=== PATIENT | male | born 1985 | race Caucasian/White ===

== ENCOUNTER 2020-03-04 10:27 | Inpatient (IN) | payer SELFPAY ==
[2020-03-04] MEDS ORDERED: NORMAL SALINE 1000 ML 1,000 ML IV ONE ×2 (11:55→17:20)
[2020-03-04] MEDS ORDERED: MORPHINE SULFATE 10 MG/ML INJ IV ONE ×2 (11:56→13:45)
[2020-03-04] MEDS ORDERED: ONDANSETRON HCL INJ/PF 4 MG/2 ML SDV IV ONE (11:56)
--- NOTE | 2020-03-04 11:57 | ER Document Report ---
ED GI/ - General Chief Complaint: Nausea/Vomiting/Diarrhea Stated Complaint: NAUSEA,VOMITING,DIARRHEA Time Seen by Provider: 03/04/20 11:46 Notes: CHIEF COMPLAINT: Right upper quadrant pain with vomiting HPI: 34-year-old male with history of hypertension presenting with right upper quadrant discomfort which radiates into the right back with vomiting since last night. Patient states he has had intermittent episodes of pain in the right b ack with some right upper quadrant pain over the last few years has never had it evaluated. Has not had a fever. Denies right lower quadrant pain. Has not specifically associated the discomfort with eating or drinking ROS: See HPI - all other systems were reviewed and are otherwise negative Constitutional: no fever Eyes: no drainage, no blurred vision ENT: no runny nose, no sore throat Cardiovascular: no chest pain Resp: no SOB, no cough GI: + vomiting, no diarrhea, + abdominal pain : no dysuria Integumentary: no rash Allergy: no hives Musculoskeletal: no extremity pain or swelling Neurological: no numbness/tingling, no weakness MEDICATIONS: I agree with the patient medications as charted by the RN. ALLERGIES: I agree with the allergies as charted by the RN. PAST MEDICAL HISTORY/PAST SURGICAL HISTORY: Reviewed and agree as charted by RN. SOCIAL HISTORY: Reviewed and agree as charted by RN. FAMILY HISTORY: No significant familial comorbid conditions directly related to patient complaint EXAM: Reviewed vital signs as charted by RN. CONSTITUTIONAL: Alert and oriented and responds appropriately to questions. Well-appearing; well-nourished HEAD: Normocephalic; atraumatic EYES: PERRL; Conjunctivae clear, sclerae non-icteric ENT: normal nose; no rhinorrhea; moist mucous membranes; pharynx without lesions noted, no uvula edema or deviation, no tonsillar hypertrophy, phonation normal NECK: Supple without meningismus; non-tender; no cervical lymphadenopathy, no masses CARD: RRR; no murmurs, no clicks, no rubs, no gallops; symmetric distal pulses RESP: Normal chest excursion without splinting or tachypnea; breath sounds clear and equal bilaterally; no wheezes, no rhonchi, no rales, pulse oximetry 98% on room air not hypoxic ABD/GI: Normal bowel sounds; non-distended; soft, moderate tenderness in the right upper quadrant on palpation, no rebound, no guarding; no palpable organomegaly or masses. BACK: The back appears normal and is non-tender to palpation, there is no CVA tenderness EXT: Normal ROM in all joints; non-tender to palpation; no cyanosis, no effu sions, no edema SKIN: Normal color for age and race; warm; dry; good turgor; no acute lesions noted NEURO: Moves all extremities equally; Motor and sensory function intact PSYCH: The patient's mood and manner are appropriate. Grooming and personal hygiene are appropriate. MDM: 34-year-old male with right upper quadrant pain intermittent for several years persistent since last night with multiple episodes of nausea vomiting no diarrhea. Will obtain baseline screening labs, treat patient's pain and nausea obtain right upper quadrant ultrasound to evaluate for cholelithiasis or cholecystitis - Related Data Allergies/Adverse Reactions: Penicillins Adverse Reaction (Verified 03/04/20 12:14) Past Medical History - Social History Smoking Status: Unknown if Ever Smoked Family History: Reviewed & Not Pertinent Physical Exam - Vital signs Vitals: Temp Pulse Resp BP Pulse Ox 98.3 F 61 16 146/91 H 99 03/04/20 11:10 03/04/20 11:10 03/04/20 11:10 03/04/20 11:10 03/04/20 11:10 Course - Re-evaluation Re-evalutation: 03/04/20 14:45 Ultrasound shows no gallstones no pericholecystic fluid no gallbladder wall thickening. Questionable distal duct dilatation of 7.[address] imaging to ensure no further abnormalities. 03/04/20 17:[address] scan suggests cholecystitis. Patient reexamined, still moderately tender in the right upper quadrant. Discussed with Dr. Blevins, surgery, [place] purvis patient has cholecystitis will come down to evaluate patient. Discussed with the patient who is aware he has been n.p.o. since 10 PM last night. - Vital Signs Vital signs: Temp Pulse Resp BP Pulse Ox 98.2 F 52 L 15 147/76 H 97 03/04/20 14:08 03/04/20 14:08 03/04/20 14:08 03/04/20 14:08 03/04/20 14:08 - Laboratory Result Diagrams: 03/04/20 12:25 10/07/20 12:25 Laboratory results interpreted by me: 03/04/20 03/04/20 12:25 12:25 WBC 14.8 H RBC 5.68 H RDW 14.2 H Lymph % (Auto) 9.9 L Absolute Neuts (auto) 12.1 H Seg Neutrophils % 81.8 H ALT 57 H Discharge - Discharge Clinical Impression: Acute cholecystitis due to biliary calculus Condition: Stable Disposition: ADMITTED INPATIENT Admitting Provider: Surgicalist - Dr. Blevins Unit Admitted: Surgical Floor
[2020-03-04 12:59] LABS: ABSOLUTE BASOPHILS # (AUTO) 0.1 10^3/uL (0.0-0.2); ABSOLUTE EOSINOPHILS # (AUTO) 0.3 10^3/uL (0.0-0.6); ABSOLUTE LYMPHOCYTES (AUTO) 1.5 10^3/uL (0.5-4.7); ABSOLUTE MONOCYTES (AUTO) 0.9 10^3/uL (0.1-1.4); ABSOLUTE NEUT (AUTO) 12.1 10^3/uL (1.7-8.2); BASOPHILS % (AUTO) 0.5 % (0-2); EOSINOPHILS % (AUTO) 1.8 % (0-6); LYMPHOCYTES % (AUTO) 9.9 % (13-45); MEAN CORPUSCULAR HEMOGLOBIN 28.1 pg (27.0-33.4); MEAN CORPUSCULAR HGB CONC 33.9 g/dL (32.0-36.0); MEAN CORPUSCULAR VOLUME 83 fl (80-97); PLATELET COUNT 180 10^3/uL (150-450); RED BLOOD COUNT 5.68 10^6/uL (4.35-5.55); RED CELL DISTRIBUTION WIDTH 14.2 % (11.5-14.0); SEGMENTED NEUTROPHILS % (AUTO) 81.8 % (42-78); TOTAL CELLS COUNTED % (AUTO) 100 %; WHITE BLOOD COUNT 14.8 10^3/uL (4.0-10.5)
[2020-03-04 13:05] LABS: APPEARANCE,URINE CLOUDY; BILIRUBIN,URINE NEGATIVE (NEGATIVE); COLOR,URINE YELLOW; GLUCOSE, URINE NEGATIVE (NEGATIVE); KETONES,URINE NEGATIVE (NEGATIVE); LEUKOCYTE ESTERASE,URINE NEGATIVE (NEGATIVE); NITRITE,URINE NEGATIVE (NEGATIVE); PROTEIN,URINE NEGATIVE (NEGATIVE); URINE SPECIFIC GRAVITY 1.018; UROBILINOGEN,URINE NEGATIVE mg/dL (<2.0)
[2020-03-04 13:14] LABS: ALBUMIN 4.6 g/dL (3.5-5.0); ALKALINE PHOSPHATASE 95 U/L (38-126); ANION GAP 9 (5-19); ASPARTATE AMINO TRANSFERASE 48 U/L (17-59); BILIRUBIN,DIRECT 0.3 mg/dL (0.0-0.4); BILIRUBIN,TOTAL 0.3 mg/dL (0.2-1.3); BLOOD UREA NITROGEN 13 mg/dL (7-20); CALCIUM 10.2 mg/dL (8.4-10.2); CARBON DIOXIDE 30 mmol/L (22-30); CHLORIDE 105 mmol/L (98-107); GLUCOSE 90 mg/dL (75-110); POTASSIUM 4.7 mmol/L (3.6-5.0); TOTAL PROTEIN 7.6 g/dL (6.3-8.2)
--- NOTE | 2020-03-04 14:30 | RADIOLOGY REPORT (SQ) ---
EXAM DESCRIPTION: U/S ABDOMEN LIMITED W/O DOP IMAGES COMPLETED DATE/TIME: 03/04/2020 2:02 pm REASON FOR STUDY: ruq pain COMPARISON: None. TECHNIQUE: Dynamic and static grayscale images acquired of the abdomen and recorded on PACS. Mpo yamilet selected color Doppler and spectral images recorded. LIMITATIONS: None. FINDINGS: PANCREAS: No masses. The tail is poorly seen. LIVER: No masses. Echotexture normal. LIVER VASCULATURE: Normal directional flow of the main portal vein and hepatic veins. GALLBLADDER: No stones. No wall thickening. No pericholecystic fluid. There appear to be a couple polyps. ULTRASOUND-DETECTED ALMEIDA'S SIGN: Negative. INTRAHEPATIC DUCTS AND COMMON DUCT: Common bile duct is prominent, measuring 7.3 mm. There is no sig nificant intrahepatic ductal dilatation. AORTA: No aneurysm. RIGHT KIDNEY: Normal size, 9.8 cm. Normal echogenicity. No solid or suspicious masses. No hydronephr osis. No calcifications. PERITONEAL AND RIGHT PLEURAL SPACE: No ascites or effusions. OTHER: No other significant findings. IMPRESSION: 1. There appear to be a couple of gallbladder polyps. No gallstones. No evidence of c holecystitis. 2. The common bile duct is mildly dilated. Correlate for biliary obstruction. TECHNICAL DOCUMENTATION: JOB ID: [id number] 2010 [employer]- All Rights Reserved Reading location - IP/workstation name: [email or web address]
--- NOTE | 2020-03-04 17:03 | RADIOLOGY REPORT (SQ) ---
EXAM DESCRIPTION: CT ABD/PELVIS WITH IV ONLY IMAGES COMPLETED DATE/TIME: 03/04/2020 4:25 pm REASON FOR STUDY: ruq pain COMPARISON: None. TECHNIQUE: CT scan of the abdomen and pelvis performed using helical scanning technique with dynamic intravenous contrast injection. No oral contrast. Images reviewed with lung, soft tissue, and bone windows. Reconstructed coronal and sagittal MPR images reviewed. Delayed images for evaluation of the urinary system also acquired. All images stored on PACS. All CT scanners at this facility use dose modulation, iterative reconstruction, and/or weight based d osing when appropriate to reduce radiation dose to as low as reasonably achievable (ALARA). [facility]: Dose Right [facility]: CareDose [facility]: Dose Right [facility]: Teradose 4D [facility]: [employer] CONTRAST TYPE AND DOSE: contrast/concentration: Isovue 350.00 mmol/ml; Total Contrast Delivered: 95. 0 ml; Total Saline Delivered: 61.0 ml RENAL FUNCTION: BUN 13 creatinine 0.97 RADIATION DOSE: CT Rad equipment meets quality standard of care and radiation dose reduction techniq ues were employed. CTDIvol: 4.8 - 5.4 mGy. DLP: 573 mGy-cm.. LIMITATIONS: None. FINDINGS: LOWER CHEST: No significant findings. No nodules or infiltrates. LIVER: Normal size. No masses. No dilated ducts. SPLEEN: Normal size. No focal lesions. PANCREAS: No masses. No significant calcifications. No adjacent inflammation or peripancreatic fluid collections. Pancreatic duct not dilated. GALLBLADDER: There appear to be multiple small gallstones in the fundus of the gallbladder. Question able wall thickening with small amount of pericholecystic fluid. ADRENAL GLANDS: No significant masses or asymmetry. RIGHT KIDNEY AND URETER: No solid masses. No significant calcifications. No hydronephrosis or hyd roureter. LEFT KIDNEY AND URETER: No solid masses. No significant calcifications. No hydronephrosis or hydr oureter. AORTA AND VESSELS: No aneurysm. No dissection. Renal arteries, SMA, celiac without stenosis. RETROPERITONEUM: No retroperitoneal adenopathy, hemorrhage or masses. BOWEL AND PERITONEAL CAVITY: No masses or inflammatory changes. No free fluid or peritoneal masses. APPENDIX: Not identified. PELVIS: No mass. No free fluid. Normal bladder. ABDOMINAL WALL: No masses. No hernias. BONES: No significant or acute findings. OTHER: No other significant finding. IMPRESSION: Cholelithiasis. Correlate for cholecystitis. TECHNICAL DOCUMENTATION: JOB ID: [id number] Quality ID # [id number]: Final reports with documentation of one or more dose reduction techniques (e.g., Au tomated exposure control, adjustment of the mA and/or kV according to patient size, use of iterative reconstruction technique) 2010 [employer]- All Rights Reserved Reading location - IP/workstation name: [email or web address]
[2020-03-04] MEDS ORDERED: NORMAL SALINE 1,000 ML IV ONE (17:53)
[2020-03-04] MEDS ORDERED: ONDANSETRON HCL INJ/PF 4 MG/2 ML SDV IV PRN (17:53)
[2020-03-04] MEDS ORDERED: MORPHINE SULFATE 10 MG/ML INJ IV PRN (17:53)
--- NOTE | 2020-03-04 17:53 | PDOC H&P ---
History of Present Illness Admission Date/PCP: 03/04/20 17:27 Patient complains of: Right upper quadrant pain History of Present Illness: PEYTON MAGDALENO is a 34 year old male, healthy, with a few day history of right upper quadrant pain intense nausea who presents to the hospital with above symptoms. An ultrasound of the gallbladder was done revealing thickening of the gallbladder wall with cholelithiasis; CAT scan of the abdomen pelvis confirms these results. Social History Smoking Status: Unknown if Ever Smoked Family History Family History: Reviewed & Not Pertinent Parental Family History Reviewed: No Children Family History Reviewed: No Sibling(s) Family History Reviewed.: No Medication/Allergy Allergies/Adverse Reactions: Penicillins Adverse Reaction (Verified 03/04/20 12:14) Physical Exam Vital Signs: Temp Pulse Resp BP Pulse Ox 98.2 F 52 L 15 147/76 H 97 03/04/20 14:08 03/04/20 14:08 03/04/20 14:08 03/04/20 14:08 03/04/20 14:08 Intake & Output 03/03/20 03/04/20 03/05/20 06:59 06:59 06:59 Intake Total 1000 Balance 1000 Weight 82.554 kg General appearance: PRESENT: no acute distress, thin Eye exam: PRESENT: EOMI Mouth exam: PRESENT: neck supple Teeth exam: PRESENT: poor dentation Neck exam: PRESENT: carotid bruit Respiratory exam: PRESENT: clear to auscultation leilani Cardiovascular exam: PRESENT: RRR GI/Abdominal exam: PRESENT: soft - Noted distended, not tender, hypoactive bowel sounds, tenderness - Right upper quadrant with grimacing and defensive behavior Rectal exam: PRESENT: deferred Extremities exam: PRESENT: full ROM Musculoskeletal exam: PRESENT: full ROM Psychiatric exam: PRESENT: appropriate affect Skin exam: PRESENT: warm Results Laboratory Results: 03/04/20 12:25 03/04/20 12:25 03/04/20 03/04/20 03/04/20 12:25 12:25 12:25 WBC 14.8 H RBC 5.68 H Hgb 16.0 Hct 47.0 MCV 83 MCH 28.1 MCHC 33.9 RDW 14.2 H Plt Count 180 Seg Neutrophils % 81.8 H Sodium 143.9 Potassium 4.7 Chloride 105 Carbon Dioxide 30 Anion Gap 9 BUN 13 Creatinine 0.97 Est GFR ( Amer) > 60 Glucose 90 Calcium 10.2 Total Bilirubin 0.3 AST 48 Alkaline Phosphatase 95 Total Protein 7.6 Albumin 4.6 Lipase 192.1 Urine Color YELLOW Urine Appearance CLOUDY Urine pH 7.0 Ur Specific [place] 1.018 Urine Protein NEGATIVE Urine Glucose (UA) NEGATIVE Urine Ketones NEGATIVE Urine Blood NEGATIVE Urine Nitrite NEGATIVE Ur Leukocyte Esterase NEGATIVE Impressions: Abdomen Ultrasound 03/04/20 11:55 IMPRESSION: 1. There appear to be a couple of gallbladder polyps. No gallstones. No evidence of cholecystitis. 2. The common bile duct is mildly dilated. Correlate for biliary obstruction. Abdomen/Pelvis CT 03/04/20 14:32 IMPRESSION: Cholelithiasis. Correlate for cholecystitis. Assessment & Plan - Diagnosis (1) Acute cholecystitis due to biliary calculus Is this a current diagnosis for this admission?: Yes - Time Anticipated Discharge Disposition: Home, Self Care Anticipated Discharge Timeframe: within 72 hours - Plan Summary Plan Summary: Assessment: Right upper quadrant pain CT scan of the abdomen and ultrasound liver significant for gallbladder wall thickening and cholelithiasis Cholecystitis with cholelithiasis White blood cell count of 15.8 liver profile electrolytes BUN/creatinine within normal limits Physical exam significant for right upper quadrant pain Plan: Admit the patient Clear liquids IV fluids IV antibiotics Cipro / clindamycin Pain medication IV COVID-19 test in preparation for surgery Plan laparoscopic cholecystectomy, possible open, possible cholangiogram once the patient the COVID-19 test results are available
[2020-03-04] MEDS ORDERED: GLUCAGON,HUMAN RECOMB 1 MG INJ SUBCUT PRN (17:58)
[2020-03-04] MEDS ORDERED: DEXTROSE 40% GEL 15 GM TUBE PO PRN ×2 (17:58)
[2020-03-04] MEDS ORDERED: DEXTROSE 50%-WATER 25 GM/50 ML DISP.SYRIN IV PRN ×2 (17:58)
[2020-03-04] MEDS: FAMOTIDINE INJ/PF 20 MG/2 ML SDV IV SCH ×2 (19:33→23:01)
[2020-03-04] MEDS: CLINDAMYCIN 600 MG/D5W RTU 600 MG/50 ML RTUPB IV SCH (20:41)
[2020-03-04] MEDS: CIPROFLOXACIN 400 MG/D5W RTU 400 MG/200 ML RTUPB IV SCH (23:01)
[2020-03-05] MEDS: CLINDAMYCIN 600 MG/D5W RTU 600 MG/50 ML RTUPB IV SCH ×3 (02:28→17:17)
[2020-03-05 05:31] LABS: ABSOLUTE BASOPHILS # (AUTO) 0.1 10^3/uL (0.0-0.2); ABSOLUTE EOSINOPHILS # (AUTO) 0.3 10^3/uL (0.0-0.6); ABSOLUTE LYMPHOCYTES (AUTO) 2.4 10^3/uL (0.5-4.7); ABSOLUTE MONOCYTES (AUTO) 0.7 10^3/uL (0.1-1.4); ABSOLUTE NEUT (AUTO) 5.8 10^3/uL (1.7-8.2); BASOPHILS % (AUTO) 0.6 % (0-2); EOSINOPHILS % (AUTO) 3.5 % (0-6); HEMATOCRIT 40.6 % (37.9-51.0); LYMPHOCYTES % (AUTO) 25.7 % (13-45); MEAN CORPUSCULAR HEMOGLOBIN 28.2 pg (27.0-33.4); MEAN CORPUSCULAR HGB CONC 34.2 g/dL (32.0-36.0); MEAN CORPUSCULAR VOLUME 82 fl (80-97); MONOCYTES % (AUTO) 7.5 % (3-13); PLATELET COUNT 137 10^3/uL (150-450); RED BLOOD COUNT 4.93 10^6/uL (4.35-5.55); RED CELL DISTRIBUTION WIDTH 14.1 % (11.5-14.0); SEGMENTED NEUTROPHILS % (AUTO) 62.7 % (42-78); TOTAL CELLS COUNTED % (AUTO) 100 %; WHITE BLOOD COUNT 9.3 10^3/uL (4.0-10.5)
[2020-03-05 05:34] LABS: HEMOGLOBIN 13.9 g/dL (13.5-17.0)
[2020-03-05 05:49] LABS: ALBUMIN 3.3 g/dL (3.5-5.0); ALKALINE PHOSPHATASE 68 U/L (38-126); ANION GAP 5 (5-19); ASPARTATE AMINO TRANSFERASE 32 U/L (17-59); BILIRUBIN,DIRECT 0.2 mg/dL (0.0-0.4); BILIRUBIN,TOTAL 0.7 mg/dL (0.2-1.3); BLOOD UREA NITROGEN 8 mg/dL (7-20); CALCIUM 9.1 mg/dL (8.4-10.2); CARBON DIOXIDE 28 mmol/L (22-30); CHLORIDE 105 mmol/L (98-107); GLUCOSE 91 mg/dL (75-110); POTASSIUM 4.4 mmol/L (3.6-5.0); TOTAL PROTEIN 5.5 g/dL (6.3-8.2)
[2020-03-05] MEDS ORDERED: NORMAL SALINE 1000 ML 1,000 ML IV ONE (08:32)
--- NOTE | 2020-03-05 08:32 | PDOC PROGRESS REPORT ---
Subjective Progress Note for:: 03/05/20 Subjective:: Patient comfortable, reports less right upper quadrant pain Reason For Visit: ACUTE CHOLECYSTITIS WITH CHOLELITHIASIS Physical Exam Vital Signs: Temp Pulse Resp BP Pulse Ox 98.1 F 41 L 18 104/55 L 97 03/05/20 00:23 03/05/20 00:23 03/05/20 00:23 03/05/20 00:23 03/05/20 00:23 Intake & Output 03/04/20 03/05/20 03/06/20 06:59 06:59 06:59 Intake Total 3300 Balance 3300 Weight 82.6 kg General appearance: PRESENT: no acute distress, thin Respiratory exam: PRESENT: clear to auscultation leilani Cardiovascular exam: PRESENT: RRR GI/Abdominal exam: PRESENT: soft, tenderness - Right upper quadrant Results Laboratory Results: 03/05/20 05:14 03/05/20 05:14 03/04/20 03/04/20 03/04/20 12:25 12:25 12:25 WBC 14.8 H RBC 5.68 H Hgb 16.0 Hct 47.0 MCV 83 MCH 28.1 MCHC 33.9 RDW 14.2 H Plt Count 180 Seg Neutrophils % 81.8 H Sodium 143.9 Potassium 4.7 Chloride 105 Carbon Dioxide 30 Anion Gap 9 BUN 13 Creatinine 0.97 Est GFR ( Amer) > 60 Glucose 90 Calcium 10.2 Total Bilirubin 0.3 AST 48 Alkaline Phosphatase 95 Total Protein 7.6 Albumin 4.6 Lipase 192.1 Urine Color YELLOW Urine Appearance CLOUDY Urine pH 7.0 Ur Specific [place] 1.018 Urine Protein NEGATIVE Urine Glucose (UA) NEGATIVE Urine Ketones NEGATIVE Urine Blood NEGATIVE Urine Nitrite NEGATIVE Ur Leukocyte Esterase NEGATIVE 03/05/20 03/05/20 05:14 05:14 WBC 9.3 RBC 4.93 Hgb 13.9 D Hct 40.6 MCV 82 MCH 28.2 MCHC 34.2 RDW 14.1 H Plt Count 137 L Seg Neutrophils % 62.7 Sodium 138.2 Potassium 4.4 Chloride 105 Carbon Dioxide 28 Anion Gap 5 BUN 8 Creatinine 1.14 Est GFR ( Amer) > 60 Glucose 91 Calcium 9.1 Total Bilirubin 0.7 AST 32 Alkaline Phosphatase 68 Total Protein 5.5 L Albumin 3.3 L Lipase Urine Color Urine Appearance Urine pH Ur Specific [place] Urine Protein Urine Glucose (UA) Urine Ketones Urine Blood Urine Nitrite Ur Leukocyte Esterase Impressions: Abdomen Ultrasound 03/04/20 11:55 IMPRESSION: 1. There appear to be a couple of gallbladder polyps. No gallstones. No evidence of cholecystitis. 2. The common bile duct is mildly dilated. Correlate for biliary obstruction. Abdomen/Pelvis CT 03/04/20 14:32 IMPRESSION: Cholelithiasis. Correlate for cholecystitis. Assessment & Plan - Diagnosis (1) Acute cholecystitis due to biliary calculus Is this a current diagnosis for this admission?: Yes - Time Anticipated Discharge Disposition: Home, Self Care Anticipated Discharge Timeframe: within 48 hours - Plan Summary Plan Summary: Assessment: Right upper quadrant pain Ultrasound significant for thickening of the gallbladder wall with cholelithiasis Slightly enlarged common bile duct [address] scan abdomen pelvis significant for acute cholecystitis and cholelithiasis White blood cell count normal today Liver profile within normal limits Physical exam significant for slight right upper quadrant tenderness, improved since admission COVID-19 test pending Plan: Laparoscopically cholecystectomy, possible open, possible cholangiogram when the COVID-19 test results are available Procedure, risks, benefits, complications, including bleeding from the liver, injury to bile ducts requiring transfer and open repair, Infection, bowel injury, and have been discussed with the patient, his questions were answered to his satisfaction, he decides to proceed Continue n.p.o. IV fluids IV antibiotics (clindamycin and Cipro).
[2020-03-05] MEDS: FAMOTIDINE INJ/PF 20 MG/2 ML SDV IV SCH ×2 (10:17→22:33)
[2020-03-05] MEDS: NORMAL SALINE 1000 ML 1,000 ML IV PRN (10:17)
[2020-03-05] MEDS: CIPROFLOXACIN 400 MG/D5W RTU 400 MG/200 ML RTUPB IV SCH ×2 (10:17→22:33)
[2020-03-06] MEDS: CLINDAMYCIN 600 MG/D5W RTU 600 MG/50 ML RTUPB IV SCH ×2 (01:37→12:30)
[2020-03-06] MEDS ORDERED: LABETALOL HCL INJ 20 MG/4 ML DISP.SYRIN IV ONE ×2 (10:21→15:42)
[2020-03-06] MEDS ORDERED: ROCURONIUM BROMIDE INJ 50 MG/5 ML VIAL IV ONE (10:21)
[2020-03-06] MEDS ORDERED: SUCCINYLCHOLINE CHLORIDE INJ 200 MG/10 ML VIAL ONE (10:21)
[2020-03-06] MEDS: FAMOTIDINE INJ/PF 20 MG/2 ML SDV IV SCH (10:52)
[2020-03-06] MEDS: CIPROFLOXACIN 400 MG/D5W RTU 400 MG/200 ML RTUPB IV SCH (10:52)
[2020-03-06] MEDS: NORMAL SALINE 1000 ML 1,000 ML IV PRN (10:53)
[2020-03-06] MEDS ORDERED: BUPIVACAINE HCL 0.25 % INJ/PF (2.5 MG/1 ML) 30 ML VIAL ONE (11:03)
[2020-03-06] MEDS ORDERED: GLUCAGON,HUMAN RECOMB 1 MG INJ ONE (11:04)
[2020-03-06] MEDS ORDERED: DEXAMETHASONE SOD PHOSPHATE INJ 4 MG/1 ML VIAL ONE (14:28)
[2020-03-06] MEDS ORDERED: ONDANSETRON HCL INJ/PF 4 MG/2 ML SDV ONE (14:28)
[2020-03-06] MEDS ORDERED: LIDOCAINE 2% INJ-PF (20 MG/ML) 10 ML AMPUL ONE (14:28)
[2020-03-06] MEDS ORDERED: FENTANYL CITRATE INJ/PF 100 MCG/2 ML AMPUL ONE ×3 (14:28→14:38)
[2020-03-06] MEDS ORDERED: MIDAZOLAM 2 MG/2 ML INJ ONE (14:28)
[2020-03-06] MEDS ORDERED: PROPOFOL INJ 200 MG/20 ML VIAL IV ONE (14:29)
[2020-03-06] MEDS ORDERED: HYDROMORPHONE HCL INJ/PF 2 MG/ML AMPULE ONE (14:31)
[2020-03-06] MEDS ORDERED: SUGAMMADEX SODIUM 200 MG/2 ML SDV IV ONE (14:37)
--- NOTE | 2020-03-06 14:58 | PDOC PROGRESS REPORT ---
Subjective Progress Note for:: 03/06/20 Reason For Visit: ACUTE CHOLECYSTITIS WITH CHOLELITHIASIS Physical Exam Vital Signs: Temp Pulse Resp BP Pulse Ox 98.0 F 45 L 16 124/67 100 03/06/20 10:35 03/06/20 10:35 03/06/20 10:35 03/06/20 10:35 03/06/20 10:35 Intake & Output 03/05/20 03/06/20 03/07/20 06:59 06:59 06:59 Intake Total 3300 2620 250 Balance 3300 2620 250 Weight 82.6 kg 82.3 kg General appearance: PRESENT: no acute distress, cooperative Head exam: PRESENT: atraumatic, normocephalic Eye exam: PRESENT: EOMI, PERRLA. ABSENT: scleral icterus Mouth exam: PRESENT: moist, neck supple Neck exam: ABSENT: meningismus, tenderness, thyromegaly, tracheal deviation Respiratory exam: PRESENT: unlabored. ABSENT: tachypnea, wheezes Cardiovascular exam: ABSENT: tachycardia Pulses: PRESENT: normal radial pulses GI/Abdominal exam: PRESENT: soft. ABSENT: distended, rebound, rigid, tenderness Rectal exam: PRESENT: deferred Extremities exam: ABSENT: clubbing Musculoskeletal exam: ABSENT: deformity Neurological exam: PRESENT: alert, awake, oriented to person, oriented to place, oriented to time, oriented to situation, CN II-XII grossly intact Psychiatric exam: ABSENT: agitated, anxious, depressed Focused psych exam: ABSENT: delusional Skin exam: ABSENT: cyanosis, erythema, jaundice Results Laboratory Results: 03/05/20 05:14 03/05/20 05:14 Impressions: Abdomen Ultrasound 03/04/20 11:55 IMPRESSION: 1. There appear to be a couple of gallbladder polyps. No gallstones. No evidence of cholecystitis. 2. The common bile duct is mildly dilated. Correlate for biliary obstruction. Abdomen/Pelvis CT 03/04/20 14:32 IMPRESSION: Cholelithiasis. Correlate for cholecystitis. Assessment & Plan - Diagnosis (1) Symptomatic cholelithiasis Is this a current diagnosis for this admission?: Yes - Time Anticipated Discharge Disposition: Home, Self Care Anticipated Discharge Timeframe: unknown - Plan Summary Plan Summary: 34-year-old male with symptomatic gallstones and mildly dilated common bile duct. Plan for cholecystectomy today with intraoperative cholangiogram. If intra-ductal pathology is identified, he may require transfer to another facility. Plan for surgery today. Risks/benefits discussed, informed consent o btained, and all questions answered.
[2020-03-06] MEDS ORDERED: FENTANYL CITRATE INJ/PF 100 MCG/2 ML AMPUL IV PRN ×3 (15:26)
[2020-03-06] MEDS ORDERED: ONDANSETRON HCL INJ/PF 4 MG/2 ML SDV IV PRN (15:26)
[2020-03-06] MEDS ORDERED: DIPHENHYDRAMINE HCL 50 MG/ML VIAL IV PRN (15:26)
[2020-03-06] MEDS ORDERED: MEPERIDINE HCL/PF INJ 25 MG/1 ML DISP.SYRIN IV PRN (15:26)
[2020-03-06] MEDS ORDERED: PROMETHAZINE HCL INJ 25 MG/1 ML VIAL IV PRN ×2 (15:26)
[2020-03-06] MEDS ORDERED: MORPHINE SULFATE 10 MG/ML INJ IV PRN (15:26)
--- NOTE | 2020-03-06 16:25 | Operative Report ---
Nonrecallable Operative Report DATE OF SURGERY: 03/06/20 PREOPERATIVE DIAGNOSIS: Symptomatic cholelithiasis POSTOPERATIVE DIAGNOSIS: 1. Acute cholecystitis. 2. Gallbladder hydrops. 3. Complete occlusion of the cystic duct OPERATION: Laparoscopic cholecystectomy with attempted intraoperative cholangiogram. SURGEON: TERELL SHEPPARD ANESTHESIA: GA TISSUE REMOVED OR ALTERED: Gallbladder COMPLICATIONS: Unable to obtain full cholangiogram due to complete occlusion at the mid cystic duct ESTIMATED BLOOD LOSS: minimal PROCEDURE: Drains/implants: None. Procedure in detail: After informed consent was obtained, the patient was brought to the operating room and laid in the supine position. The area of the abdomen was prepped and draped in a normal sterile fashion. A supraumbilical incision was created with a 15 blade scalpel. Dissection was carried through the subcutaneous tissues using sharp and blunt dissection. The linea alba fascia was incised sharply, the abdomen was entered sharply. The balloon trocar was inserted, and pneumoperitoneum was achieved. A subxiphoid 5 mm port was then placed under direct laparoscopic visualization. 2 more 5 mm ports were placed in the right upper quadrant in similar fashion. Atraumatic graspers were placed through the 5 mm ports. The gallbladder was retracted cephalad and laterally. Dissection was begun in the triangle of [place]. The cystic duct and cystic artery were fully visualized and skeletonized, seeing the liver through the triangle. Once the critical view of safety was obtained, the cystic ductotomy was performed at the infundibulum/cystic duct junction. This revealed hydropic bile. A cholangiogram catheter was then inserted into the cystic duct. It traversed the duct a small amount, however there was occlusion of the cystic duct at its distal aspect. Manipulation was performed, in order to milk the occlusion proximal, however this was unsuccessful. A cholangiogram was obtained showing a cystic duct with a distal obstruction. Again, the catheter was manipulated in order to pass the obstruction. This was not successful. 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 The cystic duct was then doubly clipped and ligated. The cystic artery in turn was clipped and divided. The gallbladder was then removed from the liver using Bovie electrocautery. The gallbladder was then placed into an Endo Catch bag and pulled out through the umbilicus. The camera was reinserted. The hilum was inspected. It was found to be free of any leakage of blood or bile. This was confirmed, the 5 mm trochars were removed under direct laparoscopic visualization. The supraumbilical trocar was removed, and pneumoperitoneum was relieved. The supraumbilical fascia was closed using 0 Vicryl suture in [id number] fashion. The overlying skin was closed using 4-0 Vicryl Rapide suture in subcuticular fashion. Dressings were placed, and the procedure was concluded. All sponge, instrument, and needle counts were correct x2. Condition: Stable.
[2020-03-06] MEDS ORDERED: HYDROCODONE/ACETAMINOPHEN 10-325 MG TABLET PO PRN (16:26)
[2020-03-06] MEDS ORDERED: ACETAMINOPHEN 1,000 MG/100 ML RTUPB IV ONE ×2 (16:29→17:45)
[2020-03-06] MEDS ORDERED: KETOROLAC TROMETHAMINE INJ/PF 30 MG/1 ML SDV ONE (16:30)
--- NOTE | 2020-03-06 16:48 | RADIOLOGY REPORT (SQ) ---
EXAM DESCRIPTION: CHOLANGIOGRAM OPERATIVE; NO CHG FLUORO IMAGES COMPLETED DATE/TIME: 03/06/2020 4:06 pm; 03/06/2020 4:05 pm REASON FOR STUDY: CHOLANIOGRAM WITH ASSISTANCE FROM C-ARM COMPARISON: CT abdomen pelvis 03/04/2020, abdominal ultrasound 03/04/2020 FLUOROSCOPY TIME: 0.7 minutes 1 digital fluoroscopic image PACS. TECHNIQUE: Cinegraphic images were obtained from an intraoperative cholangiogram. LIMITATIONS: None. FINDINGS: Laparoscopic cholecystectomy. Contrast injected into the cystic duct stump. Leakage of c ontrast from the cystic duct stump. Common bile duct not profiled on this single image IMPRESSION: INTRAOPERATIVE CHOLANGIOGRAM. COMMENT: Quality ID [id number]: Final reports for procedures using fluoroscopy that document radiation exp osure indices, or exposure time and number of fluorographic images (if radiation exposure indices are not available) TECHNICAL DOCUMENTATION: JOB ID: [id number] 2010 [employer]- All Rights Reserved Reading location - IP/workstation name: [email or web address]
--- NOTE | 2020-03-06 16:48 | RADIOLOGY REPORT (SQ) ---
EXAM DESCRIPTION: CHOLANGIOGRAM OPERATIVE; NO CHG FLUORO IMAGES COMPLETED DATE/TIME: 03/06/2020 4:06 pm; 03/06/2020 4:05 pm REASON FOR STUDY: CHOLANIOGRAM WITH ASSISTANCE FROM C-ARM COMPARISON: CT abdomen pelvis 03/04/2020, abdominal ultrasound 03/04/2020 FLUOROSCOPY TIME: 0.7 minutes 1 digital fluoroscopic image PACS. TECHNIQUE: Cinegraphic images were obtained from an intraoperative cholangiogram. LIMITATIONS: None. FINDINGS: Laparoscopic cholecystectomy. Contrast injected into the cystic duct stump. Leakage of c ontrast from the cystic duct stump. Common bile duct not profiled on this single image IMPRESSION: INTRAOPERATIVE CHOLANGIOGRAM. COMMENT: Quality ID [id number]: Final reports for procedures using fluoroscopy that document radiation exp osure indices, or exposure time and number of fluorographic images (if radiation exposure indices are not available) TECHNICAL DOCUMENTATION: JOB ID: [id number] 2010 [employer]- All Rights Reserved Reading location - IP/workstation name: [email or web address]
[2020-03-06] MEDS ORDERED: IBUPROFEN 800 MG TABLET PO SCH (17:00)
[2020-03-06] MEDS ORDERED: KETOROLAC TROMETHAMINE INJ/PF 30 MG/1 ML SDV IV ONE (17:45)
--- NOTE | 2020-03-06 18:08 | PDOC DISCHARGE SUMMARY ---
General - Admit/Disc Date/PCP Admission Date/Primary Care Provider: 03/04/20 17:27 Discharge Date: 03/06/20 - Discharge Diagnosis Final Diagnosis: Acute cholecystitis with gallbladder hydrops - Assessment Summary: 34-year-old male admitted to the hospital with acute cholecystitis. He was taken to the operating room where gallbladder hydrops was identified. The patient underwent laparoscopic cholecystectomy. He was taken to the floor in stable condition. On the floor, he began tolerating a diet, was ambulating in the hallway, and it was felt that he had reached maximal hospital benefit and was fit for discharge. - Additional Information Resuscitation Status: Full Code Discharge Diet: As Tolerated Discharge Activity: Balance Activity w/Rest, No Lifting Over 10 Pounds, No Lifting/Push/Pulling Prescriptions: Hydrocodone/Acetaminophen [[place] 10-325 Tablet] 1 each PO Q6HP PRN #14 tablet PRN Reason: For Pain Home Medications: Hydrocodone/Acetaminophen [[place] 10-325 Tablet] 1 each PO Q6HP PRN #14 tablet 03/06/20 Additional Information: Discharge home. Diet as tolerated. Activity: No lifting greater than 10 pounds x 2 weeks. Follow-up with [facility] in 7 to 10 days. [place] 10/325 mg p.o. every 6 hours PRN for pain. Ibuprofen 800 mg p.o. 3 times daily with meals. History of Present Illiness History of Present Illness: PEYTON MAGDALENO is a 34 year old male Physical Exam Vital Signs: Temp Pulse Resp BP Pulse Ox 97 F L 68 17 142/82 H 95 03/06/20 17:05 03/06/20 17:05 03/06/20 17:05 03/06/20 17:05 03/06/20 17:05 Intake & Output 03/05/20 03/06/20 03/07/20 06:59 06:59 06:59 Intake Total 3300 2620 1650 Output Total 20 Balance 3300 2620 1630 Weight 82.6 kg 82.3 kg Results Laboratory Results: WBC 9.3 10^3/uL (4.0-10.5) 03/05/20 05:14 RBC 4.93 10^6/uL (4.35-5.55) 03/05/20 05:14 Hgb 13.9 g/dL (13.5-17.0) D 03/05/20 05:14 Hct 40.6 % (37.9-51.0) 03/05/20 05:14 MCV 82 fl (80-97) 03/05/20 05:14 MCH 28.2 pg (27.0-33.4) 03/05/20 05:14 MCHC 34.2 g/dL (32.0-36.0) 03/05/20 05:14 RDW 14.1 % (11.5-14.0) H 03/05/20 05:14 Plt Count 137 10^3/uL (150-450) L 03/05/20 05:14 Lymph % (Auto) 25.7 % (13-45) 03/05/20 05:14 [place] % (Auto) 7.5 % (3-13) 03/05/20 05:14 Eos % (Auto) 3.5 % (0-6) 03/05/20 05:14 Baso % (Auto) 0.6 % (0-2) 03/05/20 05:14 Absolute Neuts (auto) 5.8 10^3/uL (1.7-8.2) 03/05/20 05:14 Absolute Lymphs (auto) 2.4 10^3/uL (0.5-4.7) 03/05/20 05:14 Absolute Monos (auto) 0.7 10^3/uL (0.1-1.4) 03/05/20 05:14 Absolute Eos (auto) 0.3 10^3/uL (0.0-0.6) 03/05/20 05:14 Absolute Basos (auto) 0.1 10^3/uL (0.0-0.2) 03/05/20 05:14 Seg Neutrophils % 62.7 % (42-78) 03/05/20 05:14 Sodium 138.2 mmol/L (137-145) 03/05/20 05:14 Potassium 4.4 mmol/L (3.6-5.0) 03/05/20 05:14 Chloride 105 mmol/L (98-107) 03/05/20 05:14 Carbon Dioxide 28 mmol/L (22-30) 03/05/20 05:14 Anion Gap 5 (5-19) 03/05/20 05:14 BUN 8 mg/dL (7-20) 03/05/20 05:14 Creatinine 1.14 mg/dL (0.52-1.25) 03/05/20 05:14 Est GFR ( Amer) > 60 (>60) 03/05/20 05:14 Est GFR (MDRD) Non-Af > 60 (>60) 03/05/20 05:14 Glucose 91 mg/dL (75-110) 03/05/20 05:14 Calcium 9.1 mg/dL (8.4-10.2) 03/05/20 05:14 Total Bilirubin 0.7 mg/dL (0.2-1.3) 03/05/20 05:14 Direct Bilirubin 0.2 mg/dL (0.0-0.4) 03/05/20 05:14 Neonat Total Bilirubin Not Reportable 03/05/20 05:14 Neonat Direct Bilirubin Not Reportable 03/05/20 05:14 Neonat Indirect Bili Not Reportable 03/05/20 05:14 AST 32 U/L (17-59) 03/05/20 05:14 ALT 40 U/L (<50) 03/05/20 05:14 Alkaline Phosphatase 68 U/L (38-126) 03/05/20 05:14 Total Protein 5.5 g/dL (6.3-8.2) L 03/05/20 05:14 Albumin 3.3 g/dL (3.5-5.0) L 03/05/20 05:14 Lipase 192.1 U/L (23-300) 03/04/20 12:25 Urine Color YELLOW 03/04/20 12:25 Urine Appearance CLOUDY 03/04/20 12:25 Urine pH 7.0 (5.0-9.0) 03/04/20 12:25 Ur Specific [place] 1.018 03/04/20 12:25 Urine Protein NEGATIVE mg/dL (NEGATIVE) 03/04/20 12:25 Urine Glucose (UA) NEGATIVE mg/dL (NEGATIVE) 03/04/20 12:25 Urine Ketones NEGATIVE mg/dL (NEGATIVE) 03/04/20 12:25 Urine Blood NEGATIVE (NEGATIVE) 03/04/20 12:25 Urine Nitrite NEGATIVE (NEGATIVE) 03/04/20 12:25 Urine Bilirubin NEGATIVE (NEGATIVE) 03/04/20 12:25 Urine Urobilinogen NEGATIVE mg/dL (<2.0) 03/04/20 12:25 Ur Leukocyte Esterase NEGATIVE (NEGATIVE) 03/04/20 12:25 Squamous Epi Cells Auto <1 /HPF 03/04/20 12:25 Urine Mucus (Auto) RARE /LPF 03/04/20 12:25 Urine Yeast ([place]) PRESENT /HPF 03/04/20 12:25 Urine Ascorbic Acid NEGATIVE (NEGATIVE) 03/04/20 12:25 COVID-19 Source See comment 03/04/20 17:45 COVID-19 ([facility]) Not Detected (Not Detect) 03/04/20 17:45 Impressions: Abdomen Ultrasound 03/04/20 11:55 IMPRESSION: 1. There appear to be a couple of gallbladder polyps. No gallstones. No evidence of cholecystitis. 2. The common bile duct is mildly dilated. Correlate for biliary obstruction. Abdomen/Pelvis CT 03/04/20 14:32 IMPRESSION: Cholelithiasis. Correlate for cholecystitis. Cholangiogram 03/06/20 00:00 IMPRESSION: INTRAOPERATIVE CHOLANGIOGRAM. Fluoroscopy 03/06/20 00:00
[2020-03-06 21:01] VITALS: BP 132/74
== END 2020-03-06 19:59 | disposition home or self-care (01) | DRG 418 ==
LOC: ER 10:27 → EH 17:27 → 4W 18:40 → 4S 21:38
PROVIDERS: ADMIT Surgery; ATTEND Surgery
PROC: 0FT44ZZ Resection of Gallbladder, Percutaneous Endoscopic Approach (ICD-10-PCS; principal; 2020-03-06 13:15)
DX: K80.01 Calculus of gallbladder with acute cholecystitis with obstruction (principal); K82.1 Hydrops of gallbladder; Z20.828 Contact with and (suspected) exposure to other viral communicable diseases
CPT/HCPCS: 36415; 74177; 74300; 76705; 790; 80053; 81001; 83690; 85025; 87040; 87635; 88304; 96361; 96374; 96375; 99285; C9803; J0131; J0330; J0744; J1100; J1170; J1610; J1885; J2250; J2270; J2405; J2704; J3010; J3490; J7030; J7040; S0028